=== PATIENT | male | born 1965 | race Hispanic/Latino ===

== ENCOUNTER 2017-02-11 09:33 | Emergency (ER) | payer OTHER ==
[2017-02-11] MEDS ORDERED: KETOROLAC TROMETHAMINE 60 MG/2 ML VIAL ONE (10:00)
[2017-02-11] MEDS ORDERED: DIAZEPAM 5 MG TABLET ONE (10:00)
== END 2017-02-11 10:44 | disposition home or self-care (01) ==
LOC: EDH 09:33
DX: M54.32 Sciatica, left side (principal); I10 Essential (primary) hypertension; E07.9 Disorder of thyroid, unspecified; E78.5 Hyperlipidemia, unspecified
CPT/HCPCS: 96372; 99283; J1885

== ENCOUNTER 2017-04-17 07:19 | Day surgery (SDC) | payer OTHER ==
[2017-04-12 16:13] LABS: BASOPHILS % (AUTO) 0.8 % (0.0-5.0); EOSINOPHILS % (AUTO) 1.6 % (0.0-8.0); HEMATOCRIT 44.1 % (42-54); LYMPHOCYTES % (AUTO) 34.1 % (21.0-51.0); MEAN CORPUSCULAR HEMOGLOBIN 32.3 pg (27.0-33.0); MEAN CORPUSCULAR HGB CONC 34.1 g/dL (32.0-36.0); MEAN CORPUSCULAR VOLUME 94.5 fL (79-99); MONOCYTES % (AUTO) 11.1 % (3.0-13.0); NEUTROPHILS % (AUTO) 52.4 % (40.0-77.0); PLATELET COUNT (AUTO) 206 K/uL (130-400); RED BLOOD CELL COUNT(AUTO) 4.66 MIL/uL (4.50-6.20); RED CELL DISTRIBUTION WIDTH 14.2 % (11.0-15.5); WHITE BLOOD COUNT (AUTO) 6.3 K/uL (4.8-10.8)
[2017-04-12 16:16] VITALS: BP 140/89
[2017-04-12 16:31] LABS: CREATININE 0.9 mg/dL (0.5-1.5); POTASSIUM 4.1 mmol/L (3.5-5.1)
[2017-04-17] VITALS (14 sets, daily range): BP systolic 93–188; BP diastolic 56–86
[~2017-04-17] VITALS: Ht 172.7 cm; Wt 135.4 kg
[~2017-04-17 07:19] MED LIST: CEFAZOLIN 3GM /D5W 100ML 100 ML IV SCH; SODIUM CHLORIDE 0.9% 1000ML 1,000 ML IV SCH
[2017-04-17] MEDS ORDERED: LACTATED RINGERS 1000ML 1,000 ML IV ONE (08:42)
[2017-04-17] MEDS ORDERED: CEFAZOLIN SODIUM 1 GM VIAL ONE (08:42)
[2017-04-17] MEDS ORDERED: DEXAMETHASONE SOD PHOSPHATE 10MG/ML 1ML VIAL ONE ×2 (09:34→09:39)
[2017-04-17] MEDS ORDERED: ONDANSETRON HCL MDV 20ML 2 MG/ML VIAL ONE (09:34)
[2017-04-17] MEDS ORDERED: LIDOCAINE PF 2% 5ML ABBOJECT ONE ×2 (09:34→09:39)
[2017-04-17] MEDS ORDERED: PHENYLEPHRINE HCL 10 MG/ML 1ML VIAL IV ONE (09:34)
[2017-04-17] MEDS ORDERED: MIDAZOLAM HCL 1 MG/ML 2ML VIAL ONE ×2 (09:34→09:39)
[2017-04-17] MEDS ORDERED: ROCURONIUM BROMIDE 10MG/1ML 5ML VL ONE (09:34)
[2017-04-17] MEDS ORDERED: LIDOCAINE HCL MPF 1% 5ML VIAL ONE (09:34)
[2017-04-17] MEDS ORDERED: LIDOCAINE HCL 2% JELLY 5 ML ONE (09:34)
[2017-04-17] MEDS ORDERED: LIDOCAINE 2%-EPI 1:200,000 20 ML VIAL IJ ONE (09:34)
[2017-04-17] MEDS ORDERED: PROPOFOL 10 MG/ML 20ML VIAL IV ONE ×2 (09:35→09:39)
[2017-04-17] MEDS ORDERED: FENTANYL CITRATE PF 50 MCG/1 ML 2ML VIAL ONE ×2 (09:35→09:39)
[2017-04-17] MEDS ORDERED: GLYCOPYRROLATE 0.2 MG/ML 5 ML VIAL ONE (09:39)
[2017-04-17] MEDS ORDERED: MEPERIDINE-PF 25 MG/ML SYG ONE (10:43)
[2017-04-17] MEDS ORDERED: LISI-613 PO (11:10)
[2017-04-17] MEDS ORDERED: LIOT5TAB8 PO (11:11)
[2017-04-17] MEDS ORDERED: LEVO125T11 PO (11:12)
== END 2017-04-17 12:28 | disposition home or self-care (01) ==
LOC: DAH 07:19
PROVIDERS: ATTEND Surgery
DX: K42.9 Umbilical hernia without obstruction or gangrene (principal); I10 Essential (primary) hypertension; E78.5 Hyperlipidemia, unspecified; E07.9 Disorder of thyroid, unspecified; Z79.899 Other long term (current) drug therapy
CPT/HCPCS: 36415; 49585; 80048; 85025; A4218; A4450; A4452; G0168; J0690; J1100 ×2; J2001 ×2; J2175; J2250; J2370; J2704 ×2; J3010; J3490 ×4; J7120

== ENCOUNTER 2019-08-27 20:27 | Inpatient (IN) | payer OTHER, SELFPAY ==
[~2019-08-27 20:27] MED LIST changes: -CEFAZOLIN 3GM /D5W 100ML 100 ML IV SCH; +LEVO125T11 PO; +LIOT5TAB11 PO; +LISI-613 PO; -SODIUM CHLORIDE 0.9% 1000ML 1,000 ML IV SCH
[2019-08-27 21:29] LABS: BASOPHILS % (AUTO) 0.3 % (0.0-5.0); HEMATOCRIT 44.4 % (42-54); LYMPHOCYTES % (AUTO) 14.9 % (21.0-51.0); MEAN CORPUSCULAR HEMOGLOBIN 31.9 pg (27.0-33.0); MEAN CORPUSCULAR HGB CONC 34.2 g/dL (32.0-36.0); MEAN CORPUSCULAR VOLUME 93.3 fL (79-99); MONOCYTES % (AUTO) 7.5 % (3.0-13.0); NEUTROPHILS % (AUTO) 76.7 % (40.0-77.0); PLATELET COUNT (AUTO) 207 K/uL (130-400); RED BLOOD CELL COUNT(AUTO) 4.76 MIL/uL (4.50-6.20); RED CELL DISTRIBUTION WIDTH 13.2 % (11.0-15.5); WHITE BLOOD COUNT (AUTO) 7.9 K/uL (4.8-10.8)
[2019-08-27 21:47] LABS: INR 0.92 (0.85-1.15); PARTIAL THROMBOPLASTIN TIME 30.6 SEC (26.3-35.5)
[2019-08-27 21:48] LABS: CREATININE 1.7 mg/dL (0.5-1.5); POTASSIUM 3.5 mmol/L (3.5-5.1)
[2019-08-27 21:52] LABS: ALBUMIN 3.8 g/dL (3.5-5.0); BILIRUBIN,TOTAL 0.8 mg/dL (0.2-1.0); TOTAL PROTEIN, SERUM 8.6 g/dL (6.0-8.3)
[2019-08-27 22:05] LABS: B-TYPE NATRIURETIC PEPTIDE < 5 pg/mL (0-100)
[2019-08-27 22:14] LABS: CRP QUANTITATIVE 209.2 mg/L (0.00-9.0)
[2019-08-27 22:23] LABS: FERRITIN 2138 ng/mL (30-400)
[2019-08-28] MEDS ORDERED: ERGOCALCIFEROL (VITAMIN D2) 50,000 UNIT CAPSULE PO ONE (01:15)
[2019-08-28] MEDS ORDERED: ACETAMINOPHEN 325 MG TAB PO PRN ×2 (01:15)
[2019-08-28] MEDS: CEFTRIAXONE SODIUM 1 GM IVP SCH ×2 (01:15→13:15)
[2019-08-28] MEDS ORDERED: ONDANSETRON HCL 4 MG/2 ML VIAL IV PRN (01:15)
[2019-08-28] MEDS ORDERED: DOXYCYCLINE 100MG+NS 250ML IV SCH (01:15)
[2019-08-28] MEDS: LACTATED RINGERS 1000ML 1,000 ML IV SCH ×2 (01:30→18:10)
[2019-08-28] MEDS: ALBUTEROL SULFATE 0.083% 2.5 MG/3 ML INH IH SCH ×6 (02:00→22:00)
[2019-08-28] MEDS ORDERED: ERGOCALCIFEROL (VITAMIN D2) 50,000 UNIT CAPSULE ONE (03:04)
[2019-08-28] MEDS ORDERED: ASCORBIC ACID 500 MG TAB ONE ×2 (03:04→07:57)
[2019-08-28] MEDS ORDERED: METHYLPREDNISOLONE SOD SUCC 40MG/ML 1ML ONE ×3 (03:04→20:25)
[2019-08-28] MEDS ORDERED: ZINC SULFATE 220 CAPSULE ONE ×2 (03:05→07:58)
[2019-08-28] MEDS ORDERED: DOXYCYCLINE 100MG+NS 250ML 0 ML IV ONE (03:05)
[2019-08-28] MEDS ORDERED: ENOXAPARIN SODIUM 40 MG/0.4 ML SYRINGE SQ ONE ×2 (03:05→07:58)
[2019-08-28] MEDS ORDERED: FAMOTIDINE/PF 20 MG/2 ML VIAL IV ONE ×2 (03:06→07:59)
[2019-08-28] MEDS: METHYLPREDNISOLONE SOD SUCC 40MG/ML 1ML IVP SCH ×3 (06:00→22:00)
[2019-08-28 06:24] LABS: BASOPHILS % (AUTO) 0.1 % (0.0-5.0); EOSINOPHILS % (AUTO) 0.1 % (0.0-8.0); HEMATOCRIT 42.4 % (42-54); LYMPHOCYTES % (AUTO) 19.2 % (21.0-51.0); MEAN CORPUSCULAR HEMOGLOBIN 32.3 pg (27.0-33.0); MEAN CORPUSCULAR HGB CONC 34.4 g/dL (32.0-36.0); MEAN CORPUSCULAR VOLUME 93.8 fL (79-99); MONOCYTES % (AUTO) 7.9 % (3.0-13.0); NEUTROPHILS % (AUTO) 72.3 % (40.0-77.0); PLATELET COUNT (AUTO) 203 K/uL (130-400); RED BLOOD CELL COUNT(AUTO) 4.52 MIL/uL (4.50-6.20); RED CELL DISTRIBUTION WIDTH 13.3 % (11.0-15.5)
[2019-08-28 06:35] LABS: ALBUMIN 3.5 g/dL (3.5-5.0); BILIRUBIN,TOTAL 0.8 mg/dL (0.2-1.0); CREATININE 1.3 mg/dL (0.5-1.5); POTASSIUM 3.4 mmol/L (3.5-5.1)
[2019-08-28 06:48] LABS: CRP QUANTITATIVE 174.9 mg/L (0.00-9.0)
[2019-08-28] MEDS ORDERED: GUAIFENESIN-DM 200/20 MG 10 ML ONE ×2 (07:02→09:43)
[2019-08-28] MEDS ORDERED: IOHEXOL 350 MG/ML 100ML INFUS..BTL IV ONE (07:14)
[2019-08-28] MEDS ORDERED: ACETYLCYSTEINE 600 MG CAPSULE ONE (07:58)
[2019-08-28] MEDS ORDERED: DOXYCYCLINE 100MG+NS 250ML 250 ML IV ONE ×2 (07:59→20:25)
[2019-08-28] MEDS ORDERED: CEFTRIAXONE SODIUM 1 GM ONE (07:59)
[2019-08-28 08:55] LABS: RAPID GROUP A STREP NEGATIVE (NEGATIVE)
[2019-08-28] MEDS: ENOXAPARIN SODIUM 40 MG/0.4 ML SYRINGE SQ SCH (09:00)
[2019-08-28] MEDS: ASCORBIC ACID 500 MG TAB PO SCH (09:00)
[2019-08-28] MEDS: FAMOTIDINE/PF 20 MG/2 ML VIAL IV SCH (09:00)
[2019-08-28] MEDS: ACETYLCYSTEINE 600 MG CAPSULE PO SCH ×2 (09:00→21:00)
[2019-08-28] MEDS: ZINC SULFATE 220 CAPSULE PO SCH (09:00)
[2019-08-28] MEDS ORDERED: POTASSIUM CHLORIDE 10MEQ/100ML 100 ML IV PRN (10:45)
[2019-08-28] MEDS ORDERED: POTASSIUM CHLORIDE 20 MEQ ERTAB PO PRN (10:45)
[2019-08-28] MEDS ORDERED: POTASSIUM CHLORIDE 10% ELIXIR 20 MEQ/15 ML UDCUP PO PRN (10:45)
[2019-08-28] MEDS ORDERED: LIDOCAINE HCL-MPF 1% 2ML VIAL IV PRN (10:45)
--- NOTE | 2019-08-28 13:27 | NUR ---
CALL TO PATIENT FOR DC PLANNING PATIENT ABLE TO SPEAK ON THE PHONE WITH MINIMAL SHORTNESS OF BREATH- VERIFIED ADDRESS AND CONTACTS- ADVISED HIM THAT [employer] DOES NOT ANSWER PATIENT STATES CURRENLY UNEMPLOYED, LIVES WITH SPOUSE AND DAUGHTER, DAUGHTER IS ILL, SPOUSE HAS NO SYMPTOMS, SEES DR. TINOCO , LAST TIME 2 YEARS AGO WHEN HE HAD INSURANCE. DCP IS HOME, [facility] TO PROVIDE TRANSPORT. Addendum: 08/28/19 at 1335 by ANGEL BEAR RN Amended: Links added.
--- NOTE | 2019-08-28 13:49 | NUR ---
CHART CHECK COMPLETED. Pt IS A 54 Y.O. MALE ADMITTED SECONDARY PUI COVID-19, PNEUMONIA, ELEVATED D-DIMER ACUTE K. Pt HAS A PAST MEDICAL HISTORY SIGNIFICANT FOR HYPERTENSION, HYPOTHYROID, ABDOMINAL HERNIA SX, COLONOSCOPY. Pt CURRENTLY ON CLEAR LIQUID DIET. PLEASE REQUEST FORMAL SKILLED SPEECH/SWALLOW EVALUATION IF Pt PRESENTS WITH +S/S OF ASPIRATION SUCH COUGH RESPONSE, THROAT CLEAR OR WET VOCAL QUALITY. Addendum: 08/28/19 at 1358 by GAETANO HAINES, [facility] Amended: Links added.
[2019-08-28] MEDS: DOXYCYCLINE 100MG+NS 250ML 250 ML IV SCH ×2 (15:00→21:00)
[2019-08-29] MEDS: CEFTRIAXONE SODIUM 1 GM IVP SCH ×2 (01:15→13:37)
[2019-08-29] MEDS: ALBUTEROL SULFATE 0.083% 2.5 MG/3 ML INH IH SCH ×6 (02:00→22:00)
[2019-08-29] MEDS ORDERED: ACETYLCYSTEINE 600 MG CAPSULE ONE ×2 (03:44→07:47)
[2019-08-29] MEDS ORDERED: CEFTRIAXONE SODIUM 1 GM ONE ×2 (03:44→07:48)
[2019-08-29] MEDS: METHYLPREDNISOLONE SOD SUCC 40MG/ML 1ML IVP SCH ×3 (06:00→22:19)
[2019-08-29 06:07] LABS: BASOPHILS % (AUTO) 0.2 % (0.0-5.0); HEMATOCRIT 44.8 % (42-54); LYMPHOCYTES % (AUTO) 8.5 % (21.0-51.0); MEAN CORPUSCULAR HEMOGLOBIN 31.9 pg (27.0-33.0); MEAN CORPUSCULAR HGB CONC 33.9 g/dL (32.0-36.0); MEAN CORPUSCULAR VOLUME 93.9 fL (79-99); MONOCYTES % (AUTO) 4.9 % (3.0-13.0); PLATELET COUNT (AUTO) 232 K/uL (130-400); RED BLOOD CELL COUNT(AUTO) 4.77 MIL/uL (4.50-6.20); WHITE BLOOD COUNT (AUTO) 11.7 K/uL (4.8-10.8)
[2019-08-29 06:36] LABS: ALANINE AMINOTRANSFERASE 135 U/L (12-78); ALBUMIN 3.3 g/dL (3.5-5.0); ASPARTATE AMINOTRANSFERASE 97 U/L (10-37); BILIRUBIN,TOTAL 0.5 mg/dL (0.2-1.0); CARBON DIOXIDE 28 mmol/L (21-32); CHLORIDE 100 mmol/L (101-111); CREATININE 0.8 mg/dL (0.5-1.5); GLOMERULAR FILTR. RATE CALC 107 mL/min (>60); GLUCOSE,RANDOM 172 mg/dL (70-105); LACTATE DEHYDROGENASE 437 U/L (81-234); POTASSIUM 3.9 mmol/L (3.5-5.1); SODIUM SERUM 135 mmol/L (136-145); TOTAL PROTEIN, SERUM 8.4 g/dL (6.0-8.3); UREA NITROGEN, BLOOD 17 mg/dL (7-18)
[2019-08-29] MEDS ORDERED: ASCORBIC ACID 500 MG TAB ONE (07:47)
[2019-08-29] MEDS ORDERED: ZINC SULFATE 220 CAPSULE ONE (07:47)
[2019-08-29] MEDS ORDERED: METHYLPREDNISOLONE SOD SUCC 40MG/ML 1ML ONE (07:47)
[2019-08-29] MEDS ORDERED: DOXYCYCLINE 100MG+NS 250ML 250 ML IV ONE (07:48)
[2019-08-29] MEDS ORDERED: ENOXAPARIN SODIUM 40 MG/0.4 ML SYRINGE SQ ONE (07:48)
[2019-08-29] MEDS ORDERED: FAMOTIDINE/PF 20 MG/2 ML VIAL IV ONE (07:49)
[2019-08-29 09:00] VITALS: BP 149/98
[2019-08-29] MEDS: DOXYCYCLINE 100MG+NS 250ML 250 ML IV SCH ×2 (09:00→22:18)
[2019-08-29] MEDS: ENOXAPARIN SODIUM 40 MG/0.4 ML SYRINGE SQ SCH (09:00)
[2019-08-29] MEDS: ACETYLCYSTEINE 600 MG CAPSULE PO SCH ×2 (09:00→22:18)
[2019-08-29] MEDS: ZINC SULFATE 220 CAPSULE PO SCH (09:00)
[2019-08-29] MEDS: ASCORBIC ACID 500 MG TAB PO SCH (09:00)
[2019-08-29] MEDS: FAMOTIDINE/PF 20 MG/2 ML VIAL IV SCH (09:00)
[2019-08-29 10:50] VITALS: BP 114/70
[2019-08-29] MEDS: LACTATED RINGERS 1000ML 1,000 ML IV SCH (10:50)
[2019-08-29 15:47] VITALS: BP 123/78
[2019-08-29 20:26] VITALS: BP 124/80
[2019-08-29 23:51] VITALS: BP 132/77
[2019-08-30] MEDS: ALBUTEROL SULFATE 0.083% 2.5 MG/3 ML INH IH SCH ×2 (01:25→05:25)
[2019-08-30] MEDS ORDERED: ALPRAZOLAM 0.25 MG TABLET PO ONE (01:30)
[2019-08-30] MEDS: CEFTRIAXONE SODIUM 1 GM IVP SCH ×2 (01:36→13:32)
[2019-08-30 06:23] VITALS: BP 137/86
[2019-08-30] MEDS: METHYLPREDNISOLONE SOD SUCC 40MG/ML 1ML IVP SCH ×3 (06:27→22:30)
[2019-08-30 07:01] LABS: BASOPHILS % (AUTO) 0.1 % (0.0-5.0); HEMATOCRIT 42.5 % (42-54); LYMPHOCYTES % (AUTO) 5.3 % (21.0-51.0); MEAN CORPUSCULAR HEMOGLOBIN 31.6 pg (27.0-33.0); MEAN CORPUSCULAR HGB CONC 33.6 g/dL (32.0-36.0); MONOCYTES % (AUTO) 5.4 % (3.0-13.0); NEUTROPHILS % (AUTO) 88.5 % (40.0-77.0); PLATELET COUNT (AUTO) 292 K/uL (130-400); RED BLOOD CELL COUNT(AUTO) 4.52 MIL/uL (4.50-6.20); RED CELL DISTRIBUTION WIDTH 13.1 % (11.0-15.5)
[2019-08-30 07:36] LABS: ALBUMIN 3.1 g/dL (3.5-5.0); BILIRUBIN,TOTAL 0.5 mg/dL (0.2-1.0); CREATININE 0.9 mg/dL (0.5-1.5); CRP QUANTITATIVE 72.6 mg/L (0.00-9.0); POTASSIUM 4.1 mmol/L (3.5-5.1); TOTAL PROTEIN, SERUM 7.8 g/dL (6.0-8.3)
[2019-08-30 08:00] VITALS: BP 125/74
[2019-08-30] MEDS: ZINC SULFATE 220 CAPSULE PO SCH (08:23)
[2019-08-30] MEDS: ACETYLCYSTEINE 600 MG CAPSULE PO SCH ×2 (08:24→22:29)
[2019-08-30] MEDS: ENOXAPARIN SODIUM 40 MG/0.4 ML SYRINGE SQ SCH (08:24)
[2019-08-30] MEDS: ASCORBIC ACID 500 MG TAB PO SCH (08:50)
[2019-08-30] MEDS: DOXYCYCLINE 100MG+NS 250ML 250 ML IV SCH ×2 (08:50→22:28)
[2019-08-30] MEDS: FAMOTIDINE/PF 20 MG/2 ML VIAL IV SCH (08:51)
[2019-08-30] MEDS: ALBUTEROL INHALER 90MCG/INH IH SCH ×3 (11:46→23:58)
[2019-08-30 12:00] VITALS: BP 134/73
[2019-08-30] MEDS ORDERED: ALPRAZOLAM 0.25 MG TABLET ONE (14:00)
[2019-08-30 16:00] VITALS: BP 111/74
[2019-08-30 20:35] VITALS: BP 126/74
[2019-08-30] MEDS ORDERED: SODIUM CHLORIDE 0.9% 500ML 500 ML IV ONE (23:30)
[2019-08-31] VITALS (7 sets, daily range): BP systolic 115–136; BP diastolic 66–85
[2019-08-31] MEDS: ALBUTEROL INHALER 90MCG/INH IH SCH ×6 (02:00→22:00)
[2019-08-31] MEDS: CEFTRIAXONE SODIUM 1 GM IVP SCH ×2 (02:11→12:46)
[2019-08-31] MEDS: METHYLPREDNISOLONE SOD SUCC 40MG/ML 1ML IVP SCH ×3 (06:00→22:11)
[2019-08-31] MEDS: ASCORBIC ACID 500 MG TAB PO SCH (09:17)
[2019-08-31] MEDS: ZINC SULFATE 220 CAPSULE PO SCH (09:18)
[2019-08-31] MEDS: FAMOTIDINE/PF 20 MG/2 ML VIAL IV SCH (09:18)
[2019-08-31] MEDS: ACETYLCYSTEINE 600 MG CAPSULE PO SCH ×2 (09:18→22:07)
[2019-08-31] MEDS: ENOXAPARIN SODIUM 40 MG/0.4 ML SYRINGE SQ SCH (09:19)
[2019-08-31] MEDS: DOXYCYCLINE 100MG+NS 250ML 250 ML IV SCH (09:19)
[2019-08-31] MEDS: DOXYCYCLINE HYCLATE 100 MG TABLET PO SCH (22:07)
[2019-09-01] MEDS: ALBUTEROL INHALER 90MCG/INH IH SCH (02:00)
[2019-09-01] MEDS: CEFTRIAXONE SODIUM 1 GM IVP SCH ×2 (02:05→13:26)
[2019-09-01 06:00] VITALS: BP 128/78
[2019-09-01] MEDS: METHYLPREDNISOLONE SOD SUCC 40MG/ML 1ML IVP SCH ×3 (07:15→20:20)
[2019-09-01 07:35] VITALS: BP 125/81
[2019-09-01] MEDS: FAMOTIDINE/PF 20 MG/2 ML VIAL IV SCH (09:45)
[2019-09-01] MEDS: ACETYLCYSTEINE 600 MG CAPSULE PO SCH ×2 (09:46→20:20)
[2019-09-01] MEDS: ASCORBIC ACID 500 MG TAB PO SCH (09:46)
[2019-09-01] MEDS: DOXYCYCLINE HYCLATE 100 MG TABLET PO SCH ×2 (09:46→20:20)
[2019-09-01] MEDS: ZINC SULFATE 220 CAPSULE PO SCH (09:46)
[2019-09-01] MEDS: ENOXAPARIN SODIUM 40 MG/0.4 ML SYRINGE SQ SCH (09:59)
[2019-09-01 11:44] VITALS: BP 140/68
[2019-09-01 16:00] VITALS: BP 155/83
[2019-09-01 20:00] VITALS: BP 130/83
[2019-09-02] VITALS: BP 121/83
[2019-09-02] MEDS ORDERED: MORPHINE SULFATE 2 MG/ML 1ML SYG ONE (00:22)
[2019-09-02] MEDS: CEFTRIAXONE SODIUM 1 GM IVP SCH ×2 (00:29→14:01)
[2019-09-02 04:00] VITALS: BP 128/76
[2019-09-02] MEDS: METHYLPREDNISOLONE SOD SUCC 40MG/ML 1ML IVP SCH ×3 (06:16→21:45)
[2019-09-02 08:00] VITALS: BP 147/91
[2019-09-02] MEDS: FAMOTIDINE/PF 20 MG/2 ML VIAL IV SCH (10:12)
[2019-09-02] MEDS: ASCORBIC ACID 500 MG TAB PO SCH (10:31)
[2019-09-02] MEDS: DOXYCYCLINE HYCLATE 100 MG TABLET PO SCH ×2 (10:31→21:45)
[2019-09-02] MEDS: ACETYLCYSTEINE 600 MG CAPSULE PO SCH ×2 (10:31→21:45)
[2019-09-02] MEDS: ZINC SULFATE 220 CAPSULE PO SCH (10:31)
[2019-09-02] MEDS: ENOXAPARIN SODIUM 40 MG/0.4 ML SYRINGE SQ SCH (10:32)
[2019-09-02 12:00] VITALS: BP 137/89
[2019-09-02 16:00] VITALS: BP 136/87
[2019-09-02 20:00] VITALS: BP 143/86
[2019-09-02] MEDS: ALBUTEROL INHALER 90MCG/INH IH SCH (22:00)
--- NOTE | 2019-09-02 23:00 | NUR ---
RECEIVED PT AAOx4. OOB IN CHAIR. VSS. APPEARS TO BE CALM AT THIS TIME. DENIED FEELINGS OF ANXIETY. ABLE TO MAKE NEEDS KNOWN. COVID+, ISOLATION PRECAUTIONS MAINTAINED. RESPIRATIONS EVEN AND UNLABORED AT REST. O2 SAT STABLE, 15L NRB. GOOD APPETITE. DENIED NEEDS/PAIN. WILL CONTINUE TO MONITOR. SAFETY PRECAUTIONS IN PLACE.
[2019-09-03 00:49] VITALS: BP 154/94
[2019-09-03] MEDS: CEFTRIAXONE SODIUM 1 GM IVP SCH ×2 (01:41→12:42)
[2019-09-03] MEDS: MORPHINE SULFATE 2 MG/ML 1ML SYG IVP PRN (03:13)
[2019-09-03 05:33] VITALS: BP 127/73
[2019-09-03 06:33] LABS: BASOPHILS % (AUTO) 0.4 % (0.0-5.0); HEMATOCRIT 43.9 % (42-54); LYMPHOCYTES % (AUTO) 10.3 % (21.0-51.0); MEAN CORPUSCULAR HEMOGLOBIN 31.7 pg (27.0-33.0); MEAN CORPUSCULAR HGB CONC 33.5 g/dL (32.0-36.0); MEAN CORPUSCULAR VOLUME 94.8 fL (79-99); MONOCYTES % (AUTO) 9.1 % (3.0-13.0); NEUTROPHILS % (AUTO) 74.5 % (40.0-77.0); PLATELET COUNT (AUTO) 378 K/uL (130-400); RED BLOOD CELL COUNT(AUTO) 4.63 MIL/uL (4.50-6.20); RED CELL DISTRIBUTION WIDTH 12.9 % (11.0-15.5); WHITE BLOOD COUNT (AUTO) 11.2 K/uL (4.8-10.8)
[2019-09-03] MEDS: METHYLPREDNISOLONE SOD SUCC 40MG/ML 1ML IVP SCH ×3 (06:46→22:16)
[2019-09-03 06:50] LABS: ALBUMIN 3.1 g/dL (3.5-5.0); BILIRUBIN,TOTAL 0.5 mg/dL (0.2-1.0); CREATININE 0.9 mg/dL (0.5-1.5); CRP QUANTITATIVE 12.3 mg/L (0.00-9.0); POTASSIUM 4.3 mmol/L (3.5-5.1); TOTAL PROTEIN, SERUM 7.5 g/dL (6.0-8.3)
[2019-09-03 08:00] VITALS: BP 121/73
[2019-09-03] MEDS: ALBUTEROL INHALER 90MCG/INH IH SCH ×4 (08:04→22:16)
--- NOTE | 2019-09-03 10:00 | NUR ---
RECEIVED REPORT FROM CHARGE ENTRY AFTER CONFUSION ON ASSIGNMENT AND STARTING LATE WITH PATIENTS. PATIENT SITTING UP IN THE CHAIR WITH NON-REBREATHER ON JUST COVERING HIS MOUTH. ASKED IF HE WAS GOING HOME TODAY AND I TOLD HIM NOT LONG YOU NEED THAT MASK THAT IS GIVING YOU 100% OXYGEN. HE STATED THAT DOESN'T NEED IT ALL THE TIME AND THAT HE'S BEEN WALKING AROUND THE ROOM. I INSTRUCTED HIM THAT HE WOULD NEED TO BE ON A NASAL CANNULA BEFORE HE MIGHT BE ABLE TO BE SENT HOME. HE SAID THAT HE STARTS TO GET SHORT OF BREATH WHEN HE'S ON THAT. PATIENT IS AMBULATORY NEEDED AND SITTING UP IN THE CHAIR. INSTRUCTED THAT HE WILL BE EVALUATED BY RESPIRATORY THERAPY LATER AND WE CAN SEE HOW HE DOES. Addendum: 09/03/19 at 1625 by HENRRY CROUCH RN RN Amended: Links added.
[2019-09-03] MEDS: ACETYLCYSTEINE 600 MG CAPSULE PO SCH ×2 (10:21→22:16)
[2019-09-03] MEDS: FAMOTIDINE/PF 20 MG/2 ML VIAL IV SCH (10:21)
[2019-09-03] MEDS: DOXYCYCLINE HYCLATE 100 MG TABLET PO SCH ×2 (10:21→22:15)
[2019-09-03] MEDS: ASCORBIC ACID 500 MG TAB PO SCH (10:22)
[2019-09-03] MEDS: ZINC SULFATE 220 CAPSULE PO SCH (10:22)
[2019-09-03] MEDS: ENOXAPARIN SODIUM 40 MG/0.4 ML SYRINGE SQ SCH (10:23)
--- NOTE | 2019-09-03 10:23 | NUR ---
RDSCREEN - LOS X 7 Pt with COVID precautions per nursing note. GI Soft/[place] diet order in place. Fair PO intake. No report of GI distress. BG 296, WBC 11.2, Alb 3.1. Vitamin C, Zinc supplementation in place. Ht not recorded. Recommend 75gm CCD secondary to elevated BG RD to continue to monitor. Please notify RD as nutritional concerns arise. Thank you.
[2019-09-03 11:00] VITALS: BP 124/70
--- NOTE | 2019-09-03 12:00 | NUR ---
SUZANNE MOREAU FOR HOSPITALIST BY EARLIER AND ORDERED RESPIRATORY EVALUATION FOR POSSIBLE DISCHARGE. PATIENT CONTINUES ON NON-REBREATHER AND INSTRUCTED THAT HE WILL NEED TO BE ON THE NASAL CANNULA IF HE MIGHT BE DISCHARGED WITH POSSIBLE OXYGEN. Addendum: 09/03/19 at 1648 by HENRRY CROUCH RN RN Amended: Links added.
[2019-09-03] MEDS: GUAIFENESIN-DM 200/20 MG 10 ML PO PRN ×2 (14:35→22:17)
[2019-09-03 16:00] VITALS: BP 118/87
--- NOTE | 2019-09-03 16:00 | NUR ---
RESPIRATORY THERAPY EVALUATED PATIENT AND PATIENT DECOMPENSATED QUICKLY AND WILL EITHER NEED OXYGEN AND WILL NOT BE DISCHARGED TODAY AND DR RON VISITED AND STATED MAYBE LATER. Addendum: 09/03/19 at 1706 by HENRRY CROUCH RN RN Amended: Links added.
[2019-09-03 20:00] VITALS: BP 140/84
[2019-09-04] VITALS: BP 144/91
[2019-09-04] MEDS: ALBUTEROL INHALER 90MCG/INH IH SCH ×4 (03:03→17:03)
[2019-09-04 04:00] VITALS: BP 137/86
[2019-09-04] MEDS: MORPHINE SULFATE 2 MG/ML 1ML SYG IVP PRN (04:27)
[2019-09-04 06:22] LABS: BASOPHILS % (AUTO) 0.3 % (0.0-5.0); HEMATOCRIT 43.8 % (42-54); LYMPHOCYTES % (AUTO) 10.8 % (21.0-51.0); MEAN CORPUSCULAR HEMOGLOBIN 31.5 pg (27.0-33.0); MEAN CORPUSCULAR VOLUME 92.6 fL (79-99); MONOCYTES % (AUTO) 9.9 % (3.0-13.0); NEUTROPHILS % (AUTO) 72.1 % (40.0-77.0); PLATELET COUNT (AUTO) 377 K/uL (130-400); RED BLOOD CELL COUNT(AUTO) 4.73 MIL/uL (4.50-6.20); RED CELL DISTRIBUTION WIDTH 12.6 % (11.0-15.5)
[2019-09-04 06:41] LABS: ALBUMIN 3.1 g/dL (3.5-5.0); BILIRUBIN,TOTAL 0.6 mg/dL (0.2-1.0); CREATININE 0.9 mg/dL (0.5-1.5); POTASSIUM 4.2 mmol/L (3.5-5.1); TOTAL PROTEIN, SERUM 7.4 g/dL (6.0-8.3)
[2019-09-04] MEDS: METHYLPREDNISOLONE SOD SUCC 40MG/ML 1ML IVP SCH ×3 (06:59→22:23)
[2019-09-04 08:00] VITALS: BP 131/81
[2019-09-04] MEDS: ASCORBIC ACID 500 MG TAB PO SCH (09:41)
[2019-09-04] MEDS: FAMOTIDINE/PF 20 MG/2 ML VIAL IV SCH (09:41)
[2019-09-04] MEDS: ACETYLCYSTEINE 600 MG CAPSULE PO SCH ×2 (09:41→22:21)
[2019-09-04] MEDS: ZINC SULFATE 220 CAPSULE PO SCH (09:41)
[2019-09-04] MEDS: DOXYCYCLINE HYCLATE 100 MG TABLET PO SCH ×2 (09:41→22:22)
[2019-09-04] MEDS: ENOXAPARIN SODIUM 40 MG/0.4 ML SYRINGE SQ SCH (09:43)
[2019-09-04] MEDS: GUAIFENESIN-DM 200/20 MG 10 ML PO PRN (10:17)
[2019-09-04 11:00] VITALS: BP 127/73
[2019-09-04 16:00] VITALS: BP 132/83
[2019-09-04 20:43] VITALS: BP 139/84
[2019-09-05 00:10] VITALS: BP 122/70
[2019-09-05] MEDS: MORPHINE SULFATE 2 MG/ML 1ML SYG IVP PRN (03:19)
[2019-09-05 04:32] VITALS: BP 107/63
[2019-09-05] MEDS: METHYLPREDNISOLONE SOD SUCC 40MG/ML 1ML IVP SCH ×3 (06:50→22:00)
[2019-09-05 07:09] LABS: BASOPHILS % (AUTO) 0.5 % (0.0-5.0); HEMATOCRIT 43.4 % (42-54); LYMPHOCYTES % (AUTO) 10.9 % (21.0-51.0); MEAN CORPUSCULAR HEMOGLOBIN 31.8 pg (27.0-33.0); MEAN CORPUSCULAR HGB CONC 34.1 g/dL (32.0-36.0); MEAN CORPUSCULAR VOLUME 93.1 fL (79-99); MONOCYTES % (AUTO) 9.1 % (3.0-13.0); NEUTROPHILS % (AUTO) 71.6 % (40.0-77.0); PLATELET COUNT (AUTO) 396 K/uL (130-400); RED BLOOD CELL COUNT(AUTO) 4.66 MIL/uL (4.50-6.20); RED CELL DISTRIBUTION WIDTH 12.8 % (11.0-15.5); WHITE BLOOD COUNT (AUTO) 11.1 K/uL (4.8-10.8)
[2019-09-05 07:35] LABS: ALBUMIN 3.1 g/dL (3.5-5.0); BILIRUBIN,TOTAL 0.7 mg/dL (0.2-1.0); CREATININE 0.9 mg/dL (0.5-1.5); CRP QUANTITATIVE 5.1 mg/L (0.00-9.0); POTASSIUM 4.3 mmol/L (3.5-5.1); TOTAL PROTEIN, SERUM 7.1 g/dL (6.0-8.3)
[2019-09-05 08:00] VITALS: BP 124/83
[2019-09-05] MEDS: ALBUTEROL INHALER 90MCG/INH IH SCH ×5 (09:33→22:00)
[2019-09-05] MEDS: FAMOTIDINE/PF 20 MG/2 ML VIAL IV SCH (09:35)
[2019-09-05] MEDS: ASCORBIC ACID 500 MG TAB PO SCH (09:35)
[2019-09-05] MEDS: ZINC SULFATE 220 CAPSULE PO SCH (09:35)
[2019-09-05] MEDS: ACETYLCYSTEINE 600 MG CAPSULE PO SCH ×2 (09:35→21:00)
[2019-09-05] MEDS: DOXYCYCLINE HYCLATE 100 MG TABLET PO SCH ×2 (09:35→21:00)
[2019-09-05] MEDS: ENOXAPARIN SODIUM 40 MG/0.4 ML SYRINGE SQ SCH (09:36)
[2019-09-05 11:00] VITALS: BP 124/84
[2019-09-05] MEDS: GUAIFENESIN-DM 200/20 MG 10 ML PO PRN (13:28)
[2019-09-05 16:00] VITALS: BP 130/73
--- NOTE | 2019-09-05 16:20 | NUR ---
KERVIN BREWERP PAGED RE; BS 300 PENDING CALL BACK.
[2019-09-05 22:25] VITALS: BP 112/70
[2019-09-06] VITALS (7 sets, daily range): BP systolic 109–130; BP diastolic 65–87
[2019-09-06] MEDS: ALBUTEROL INHALER 90MCG/INH IH SCH ×5 (02:00→22:50)
[2019-09-06] MEDS: MORPHINE SULFATE 2 MG/ML 1ML SYG IVP PRN (04:42)
[2019-09-06] MEDS: METHYLPREDNISOLONE SOD SUCC 40MG/ML 1ML IVP SCH ×3 (06:00→22:46)
[2019-09-06] MEDS: ACETYLCYSTEINE 600 MG CAPSULE PO SCH ×2 (10:25→22:46)
[2019-09-06] MEDS: ASCORBIC ACID 500 MG TAB PO SCH (10:25)
[2019-09-06] MEDS: ZINC SULFATE 220 CAPSULE PO SCH (10:25)
[2019-09-06] MEDS: ENOXAPARIN SODIUM 40 MG/0.4 ML SYRINGE SQ SCH (10:26)
[2019-09-06] MEDS: FAMOTIDINE/PF 20 MG/2 ML VIAL IV SCH (10:26)
[2019-09-06] MEDS: DOXYCYCLINE HYCLATE 100 MG TABLET PO SCH ×2 (10:26→22:46)
[2019-09-06] MEDS ORDERED: GLUCAGON 1MG KIT 1 MG ML IM PRN (10:30)
[2019-09-06] MEDS ORDERED: DEXTROSE 50%-WATER 50 ML DISP.SYRIN IV PRN (10:30)
[2019-09-06] MEDS: INSULIN HUMULIN R 100 UNIT/ML 3ML SQ SCH ×3 (12:46→22:50)
[2019-09-06] MEDS: GUAIFENESIN-DM 200/20 MG 10 ML PO PRN ×2 (12:48→17:05)
--- NOTE | 2019-09-06 16:57 | NUR ---
BS 426; [employer] AJ AWARE GIVE 5 EXTRA UNITS OF REGULAR IF BS MAINTAIN HIGH THAN 400 WITH NEXT DRAW AT 8PM THEN CONSULT ANIBAL.
[2019-09-06] MEDS ORDERED: INSULIN HUMULIN R 100 UNIT/ML 3ML SQ SCH (18:10)
[2019-09-07] MEDS: MORPHINE SULFATE 2 MG/ML 1ML SYG IVP PRN (00:57)
[2019-09-07 04:02] VITALS: BP 136/76
[2019-09-07 04:46] LABS: BASOPHILS % (AUTO) 0.4 % (0.0-5.0); HEMATOCRIT 42.1 % (42-54); LYMPHOCYTES % (AUTO) 8.2 % (21.0-51.0); MEAN CORPUSCULAR HGB CONC 34.7 g/dL (32.0-36.0); MEAN CORPUSCULAR VOLUME 92.3 fL (79-99); NEUTROPHILS % (AUTO) 77.2 % (40.0-77.0); PLATELET COUNT (AUTO) 327 K/uL (130-400); RED BLOOD CELL COUNT(AUTO) 4.56 MIL/uL (4.50-6.20); RED CELL DISTRIBUTION WIDTH 12.9 % (11.0-15.5); WHITE BLOOD COUNT (AUTO) 12.4 K/uL (4.8-10.8)
[2019-09-07 04:48] LABS: CREATININE 0.9 mg/dL (0.5-1.5); POTASSIUM 4.4 mmol/L (3.5-5.1)
[2019-09-07] MEDS: METHYLPREDNISOLONE SOD SUCC 40MG/ML 1ML IVP SCH (06:41)
[2019-09-07] MEDS: INSULIN HUMULIN R 100 UNIT/ML 3ML SQ SCH ×4 (06:54→21:00)
[2019-09-07 08:00] VITALS: BP 136/81
[2019-09-07] MEDS: FAMOTIDINE/PF 20 MG/2 ML VIAL IV SCH (09:07)
[2019-09-07] MEDS: ACETYLCYSTEINE 600 MG CAPSULE PO SCH ×2 (09:36→21:00)
[2019-09-07] MEDS: DOXYCYCLINE HYCLATE 100 MG TABLET PO SCH ×2 (09:36→21:00)
[2019-09-07] MEDS: ENOXAPARIN SODIUM 40 MG/0.4 ML SYRINGE SQ SCH (09:37)
[2019-09-07] MEDS: ASCORBIC ACID 500 MG TAB PO SCH (09:37)
[2019-09-07] MEDS: ZINC SULFATE 220 CAPSULE PO SCH (09:37)
[2019-09-07] MEDS: ALBUTEROL INHALER 90MCG/INH IH SCH ×3 (09:38→18:29)
[2019-09-07] MEDS ORDERED: DEXAMETHASONE 4 MG TAB PO SCH (10:30)
[2019-09-07 11:30] VITALS: BP 130/74
[2019-09-07 15:30] VITALS: BP 135/88
[2019-09-07 20:00] VITALS: BP 130/68
[2019-09-07 23:50] VITALS: BP 131/77
[2019-09-08] MEDS: MORPHINE SULFATE 2 MG/ML 1ML SYG IVP PRN (00:10)
[2019-09-08 04:25] VITALS: BP 93/51
[2019-09-08] MEDS: INSULIN HUMULIN R 100 UNIT/ML 3ML SQ SCH ×2 (07:30→11:30)
[2019-09-08 08:00] VITALS: BP 130/78
[2019-09-08] MEDS ORDERED: DEXAMETHASONE 4 MG TAB PO SCH (09:00)
[2019-09-08] MEDS: ALBUTEROL INHALER 90MCG/INH IH SCH ×2 (09:39→14:03)
[2019-09-08] MEDS: DOXYCYCLINE HYCLATE 100 MG TABLET PO SCH (09:40)
[2019-09-08] MEDS: ASCORBIC ACID 500 MG TAB PO SCH (09:40)
[2019-09-08] MEDS: FAMOTIDINE/PF 20 MG/2 ML VIAL IV SCH (09:40)
[2019-09-08] MEDS: ENOXAPARIN SODIUM 40 MG/0.4 ML SYRINGE SQ SCH (09:40)
[2019-09-08] MEDS: ZINC SULFATE 220 CAPSULE PO SCH (09:40)
[2019-09-08] MEDS: ACETYLCYSTEINE 600 MG CAPSULE PO SCH (09:40)
[2019-09-08] MEDS ORDERED: DEXAMETHASONE SOD PHOSPHATE 4 MG/ML 1ML VIAL IV SCH (09:43)
[2019-09-08] MEDS ORDERED: ALPRAZOLAM 0.5 MG TABLET PO SCH (11:45)
[2019-09-08] MEDS ORDERED: ALBU8.5H8 IH (11:51)
== END 2019-09-08 14:20 | disposition home or self-care (01) | DRG 177 ==
LOC: EDH 20:27 → EDHIP 20:28 → 4CH 08-29 09:59
PROVIDERS: ADMIT Internal Medicine; ATTEND Internal Medicine
PROC: XW13325 Transfusion of Convalescent Plasma (Nonautologous) into Peripheral Vein, Percutaneous Approach, New Technology Group 5 (ICD-10-PCS; principal; 2019-08-31)
DX: U07.1 COVID-19 (principal); J12.89 Other viral pneumonia; J96.01 Acute respiratory failure with hypoxia; N17.9 Acute kidney failure, unspecified; M62.82 Rhabdomyolysis; E86.0 Dehydration; E87.6 Hypokalemia; E03.9 Hypothyroidism, unspecified; I10 Essential (primary) hypertension; F41.9 Anxiety disorder, unspecified; Z83.3 Family history of diabetes mellitus; Z82.49 Family history of ischemic heart disease and other diseases of the circulatory system; Z87.891 Personal history of nicotine dependence
CPT/HCPCS: 36415; 36430; 71045; 71275; 80048; 80053; 82550; 82728; 82948; 83605; 83615; 83880; 84145; 84484; 85025; 85378; 85610; 85730; 86140; 86850; 86900; 86901; 86927; 87804; 87880; 93005; 94760; G0378; J0696; J1100; J1650; J1815; J2405; J2920; J3490; J7040; J7120; Q9967; U0003

== ENCOUNTER 2021-01-02 06:19 | Emergency (ER) | payer OTHER ==
[~2021-01-02] VITALS: Ht 170.2 cm; Wt 140.6 kg
[~2021-01-02 06:19] MED LIST changes: +ALBU8.5H8 IH; -LIOT5TAB11 PO; -LISI-613 PO; +LISI20TA24 PO
[2021-01-02] MEDS ORDERED: GUAIFENESIN/DEXTROMETHORPHAN 1 EACH TAB.SR.12H PO ONE (07:00)
[2021-01-02] MEDS ORDERED: ACETAMINOPHEN 500 MG TABLET PO ONE (07:00)
[2021-01-02] MEDS ORDERED: D-ME118S47 PO (07:19)
[2021-01-02] MEDS ORDERED: AZIT1PAC PO (07:19)
[2021-01-02 07:33] VITALS: BP 152/73
== END 2021-01-02 07:33 | disposition home or self-care (01) ==
LOC: EDH 06:19
DX: J22 Unspecified acute lower respiratory infection (principal); Z20.822 Contact with and (suspected) exposure to COVID-19; I11.9 Hypertensive heart disease without heart failure; E05.90 Thyrotoxicosis, unspecified without thyrotoxic crisis or storm; Z79.899 Other long term (current) drug therapy
CPT/HCPCS: 71045; 87635; 99284; C9803